=== PATIENT | male | born 1995 | race Caucasian/White ===

== ENCOUNTER 2019-06-30 09:06 | Emergency (ER) | payer OTHER ==
[~2019-06-30] VITALS: Ht 177.8 cm; Wt 88.6 kg
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
[2019-06-30 09:44] LABS: BASOPHILS # (AUTO) 0.11 x10^3/uL (0-0.1); BASOPHILS % (AUTO) 1 % (0-1); EOSINOPHILS # (AUTO) 0.15 x10^3/uL (0-0.4); EOSINOPHILS % (AUTO) 2 % (1-7); LYMPHOCYTES % (AUTO) 21 % (22-44); MD NO; MEAN CORPUSCULAR HEMOGLOBIN 31.5 pg (27.5-34.5); MEAN CORPUSCULAR HGB CONC 33.6 g/dL (33.2-36.2); MEAN CORPUSCULAR VOLUME 93.6 fL (81-97); MEAN PLATELET VOLUME 9.2 fL (7.4-10.4); MONOCYTES # (AUTO) 0.49 x10^3/uL (0.2-0.8); MONOCYTES % (AUTO) 6 % (2-9); NEUTROPHILS # (AUTO) 5.88 x10^3/uL (1.8-6.8); NEUTROPHILS % (AUTO) 70 % (42-75); PLATELET COUNT 237 x10^3/uL (130-400); RED BLOOD COUNT 5.81 x10^6/uL (4.38-5.82); RED CELL DISTRIBUTION WIDTH 12.7 % (9.4-14.8)
[2019-06-30 09:52] LABS: ANION GAP 5 mmol/L (5-15); CALCIUM 9.4 mg/dL (8.5-10.1); CHLORIDE 107 mmol/L (98-107)
[2019-06-30 09:53] LABS: ALBUMIN 4.3 g/dL (3.4-5.0); SALICYLATE LEVEL < 1.7 mg/dL (2.8-20.0)
--- NOTE | 2019-06-30 09:57 | NUR ---
PT SITTING AT EDGE OF ANDRIY. MATA. SITTER REMAINS AT BEDSIDE. ROOM REMAINS SECURE.
--- NOTE | 2019-06-30 10:07 | NUR ---
PERSONAL BELONGINGS (2 OF 2) PLACED IN SECURE LOCKER.
--- NOTE | 2019-06-30 10:12 | NUR ---
UA COLLECTED, LABELED, AND WALKED TO LAB.
--- NOTE | 2019-06-30 10:24 | NUR ---
PT RESTING ON INEZ. MATA. SITTER REMAINS AT BEDSIDE. ROOM REMAINS SECURE.
[2019-06-30 10:37] LABS: AMPHETAMINE SCREEN, URINE Negative (Negative); BARBITURATE SCREEN, URINE Negative (Negative); BENZODIAZEPINE SCREEN, URINE Negative (Negative); CANNABINOID SCREEN, URINE Negative (Negative); COCAINE SCREEN, URINE Negative (Negative); METHADONE SCREEN, URINE Negative (Negative); OPIATE SCREEN, URINE Negative (Negative)
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
--- NOTE | 2019-06-30 12:30 | NUR ---
PT DECLINED LUNCH TRAY. NO OTHER NEEDS AT THIS TIME.
--- NOTE | 2019-06-30 12:57 | NUR ---
PSYCH [employer]OE[employer] ELECTRICIAN IN TO SPEAK WITH PT AT THIS TIME.
--- NOTE | 2019-06-30 13:36 | NUR ---
D/C INSTRUCTIONS & F/U APPT RV'WD WITH PT. COMMUNITY/PSYCH RESOURCES PROVIDED TO PT. INSTRUCTED PT TO RETURN TO ED IF HE HAS ANY FEELINGS OF HOPELESSNESS OR SI. PT AMBULATED OUT OF ED WITHOUT DIFFICULTY, STATES FRIEND WILL PICK HIM UP.
[2019-06-30 13:37] VITALS: BP 144/105
== END 2019-06-30 13:39 | disposition home or self-care (01) ==
LOC: ED 12:07
DX: F41.1 Generalized anxiety disorder (principal)
CPT/HCPCS: 36415; 80048; 80307; 82040; 85025; 99283